=== PATIENT | female | born 1970 | race Caucasian/White ===

== ENCOUNTER 2017-03-13 17:08 | Emergency (ER) | payer OTHER ==
[~2017-03-13] VITALS: Ht 165.1 cm; Wt 80.1 kg
[~2017-03-13 17:08] MED LIST: ABILIFY15 MG PO; ALBUTEROL SULF8.5 GM IH; ATARAX,VISTARIL50 MG PO; Combivent IH; DELTASONE10 MG PO; DELTASONE20 MG PO; EFFEXOR XR150 MG PO; FLEXERIL5 MG PO; FOLIC ACID1 MG PO; NAPROSYN500 MG PO; OXCARBAZEPINE300 MG PO; PROMETHAZINE HC25 M1 PO; PROVENTIL,200 INHALA IH; REMERON45 MG PO; VALIUM5 MG PO; XANAX1 MG PO; ZITHROMAX500 MG PO; ZOFRAN4 MG PO
[2017-03-13] MEDS ORDERED: NAPROSYN500 MG PO (19:28)
[2017-03-13] MEDS ORDERED: FLEXERIL10 MG PO (19:28)
[2017-03-13] MEDS ORDERED: LIDODERM 5% P1 PATCH TD (19:28)
[2017-03-13 19:48] VITALS: BP 110/72
== END 2017-03-13 19:48 | disposition home or self-care (01) ==
LOC: EME 17:08
DX: S46.812A Strain of other muscles, fascia and tendons at shoulder and upper arm level, left arm, initial encounter (principal); X50.3XXA Overexertion from repetitive movements, initial encounter; F17.200 Nicotine dependence, unspecified, uncomplicated; Z71.6 Tobacco abuse counseling
CPT/HCPCS: 99281; 99283

== ENCOUNTER 2017-11-29 15:14 | Emergency (ER) | payer OTHER ==
[~2017-11-29] VITALS: Ht 167.6 cm; Wt 77.0 kg
[~2017-11-29 15:14] MED LIST changes: +FLEXERIL10 MG PO; +LIDODERM 5% P1 PATCH TD
[2017-11-29] MEDS ORDERED: REMERON15 M2 PO (15:47)
[2017-11-29] MEDS ORDERED: ABILIFY2 MG PO (15:48)
[2017-11-29] MEDS ORDERED: EFFEXOR25 MG PO (15:48)
[2017-11-29 16:23] LABS: HEMATOCRIT 41.5 % (36.0-46.0); MCH 31.9 PG (29.0-34.0); MCHC 33.7 G/DL (30.0-36.0); MCV 94.5 FL (83-99); PLATELET COUNT 262 K/uL (156-360); RBC DIS.WIDTH-CV 13.3 % (11.8-14.6); RBC DIS.WIDTH-SD 46.9 % (39-53); RED BLOOD COUNT 4.39 M/uL (3.80-5.20); WHITE BLOOD COUNT 11.8 K/uL (4.1-10.2)
[2017-11-29 16:36] LABS: CHLORIDE 107 mEq/L (99-109); POTASSIUM 4.2 mEq/L (3.7-5.4); SODIUM 141 mEq/L (136-147)
[2017-11-29 16:39] LABS: GLUCOSE 120 mg/dL (70-99)
[2017-11-29 16:40] LABS: TOTAL BILIRUBIN 0.2 mg/dL (0.0-1.0)
[2017-11-29 16:42] LABS: ALKALINE PHOSPHATASE 69 IU/L (3-129); CREATININE 0.8 mg/dL (0.6-1.3); GFR ESTIMATE (CALCULATED) > 59 mL/min/; SERUM ETHYL ALCOHOL < 10 mg/dL
[2017-11-29 16:43] LABS: UREA NITROGEN (BUN) 8 mg/dL (9-23)
[2017-11-29 16:44] LABS: AST (GOT) 20 IU/L (2-34)
[2017-11-29 16:45] LABS: ALT (GPT) 15 IU/L (3-49)
[2017-11-29 18:06] VITALS: BP 100/55
== END 2017-11-29 17:48 | disposition home or self-care (01) ==
LOC: EME 15:14
PROVIDERS: Emergency Medicine
DX: T42.4X1A Poisoning by benzodiazepines, accidental (unintentional), initial encounter (principal); F13.10 Sedative, hypnotic or anxiolytic abuse, uncomplicated; J45.909 Unspecified asthma, uncomplicated; F32.9 Major depressive disorder, single episode, unspecified; F41.9 Anxiety disorder, unspecified; F42.9 Obsessive-compulsive disorder, unspecified; Z88.5 Allergy status to narcotic agent; F17.200 Nicotine dependence, unspecified, uncomplicated
CPT/HCPCS: 80053; 81003; 85027; 93005; 99281; 99284; G0480; J2310